=== PATIENT | male | born 1995 | race Caucasian/White ===

== ENCOUNTER 2021-12-06 19:58 | Emergency (ER) | payer SELFPAY ==
[~2021-12-06] VITALS: Ht 177.8 cm; Wt 90.7 kg
[2021-12-06 19:58] VITALS: BP 145/100
--- NOTE | 2021-12-06 19:58 | NUR ---
PT DEREK [facility] TO CHAIR
--- NOTE | 2021-12-06 21:01 | NUR ---
Dr. Mercedes examining patient
[2021-12-06 21:10] VITALS: BP 145/100
--- NOTE | 2021-12-06 21:10 | NUR ---
Patient D/C to custody.
== END 2021-12-06 21:10 | disposition home or self-care (01) ==
LOC: MED 19:58
DX: V49.88XA Car occupant (driver) (passenger) injured in other specified transport accidents, initial encounter; Y93.89 Activity, other specified; Y92.89 Other specified places as the place of occurrence of the external cause; Y99.8 Other external cause status
CPT/HCPCS: 99283